=== PATIENT | female | born 1960 | race Caucasian/White ===

== ENCOUNTER 2018-11-26 08:49 | Emergency (ER) | payer OTHER ==
[2018-11-26] MEDS ORDERED: MORPHINE 4 MG/ML SYR ONE ×2 (09:04→10:44)
[2018-11-26] MEDS ORDERED: ONDANSETRON 4 MG/2 ML VIAL ONE ×2 (09:04→10:44)
[2018-11-26 09:29] LABS: Absolute Lymphocytes (CBC) 2.3 K/uL (0.7-4.9); Basophils % 0.9 % (0-1.3); Hematocrit 42.7 % (36.0-45.0); Lymphocytes % 37.5 % (15.3-44.8); MPV 10.6 fL (7.6-11.3); RBC Red Blood Cell Count 4.73 M/uL (3.86-4.86)
[2018-11-26 09:38] LABS: Bilirubin Direct 0.2 mg/dL (0-0.2); Bilirubin Total 0.8 mg/dL (0.2-1.0); Protein, Total 7.5 g/dL (6.4-8.2)
[2018-11-26] MEDS ORDERED: dexAMETHasone 10 MG/ML VIAL ONE (09:48)
[2018-11-26] MEDS ORDERED: DIAZEPAM 5 MG TABLET ONE ×2 (09:48→10:43)
[2018-11-26] MEDS ORDERED: NA CHLORIDE 0.9% 1,000 ML ONE (09:49)
[2018-11-26] MEDS ORDERED: KETOROLAC 30 MG/ML INJ ONE (09:49)
[2018-11-26 10:16] LABS: Urine Blood TRACE (NEG); Urine Glucose NEGATIVE (NEG); Urine Protein NEGATIVE (NEG)
--- NOTE | 2018-11-26 10:22 | RAD REPORT ---
EXAM DESCRIPTION: CT - Spine Lumbar Wo Con - 11/26/2018 10:10 am CLINICAL HISTORY: Radiculopathy. LOWER BACK PAIN COMPARISON: No comparisons TECHNIQUE: Axial noncontrast CT imaging of the lumbar spine was performed with coronal and sagittal re-formatted images. All CT scans are performed using dose optimization technique as appropriate and may include automated exposure control or mA/KV adjustment according to patient size. FINDINGS: No acute lumbar spine fracture seen. No aggressive marrow pattern or malalignment. Paraspinal tissues are normal in thickness. No paraspinal abscess or hematoma seen. Moderate multilevel degenerative changes throughout the lumbar spine with mild degenerative dextrosco liosis. Vacuum disc degeneration is present at L2-3, L3-4 and L5-S1. IMPRESSION: No acute lumbar spine abnormality. Moderate multilevel degenerative spondylosis of the lumbar spine with mild dextroscoliosis.
--- NOTE | 2018-11-26 10:45 | EDPHYS ---
Physician Documentation [facility] Name: Debora Florentino Age: 58 yrs Sex: Female : 1960 Arrival Date: 11/26/2018 Time: 08:49 Bed 8 Private MD: LIZBETH Physician Zeyad Saha HPI: 11/26 09:47 This 58 yrs old Female presents to ER via Wheelchair with complaints of Low miguel angel Back Pain. 09:47 The patient presents with pain that is acute, with no known mechanism of injury, and miguel angel decreased range of motion. The symptoms are located in the low back. The pain radiates to the left low back. The problem was sustained without known cause. Onset: The symptoms/episode began/occurred yesterday. Modifying factors: The patient symptoms are alleviated by remaining still, rest, the patient symptoms are aggravated by any movement, bending. Associated signs and symptoms: The patient has no apparent associated signs or symptoms. Historical: - Allergies: 09:04 No Known Allergies; ss - Home Meds: 09:14 lisinopril 40 mg Oral tab 1 tab once daily [Active]; metoprolol tartrate 100 mg Oral tw2 tab 1 tab once daily [Active]; omeprazole 40 mg Oral cpDR 1 cap once daily [Active]; atorvastatin 20 mg oral tab [Active]; - PMHx: 09:14 Hyperlipidemia; Hypertension; tw2 - Immunization history:: Adult Immunizations. - Social history:: Smoking status: . - Ebola Screening: : Patient denies travel to an Ebola-affected area in the 21 days before illness onset. - Family history:: not pertinent. ROS: 09:47 Constitutional: Negative for fever, chills, and weight loss, Eyes: Negative for injury, miguel angel pain, redness, and discharge, ENT: Negative for injury, pain, and discharge, Neck: Negative for injury, pain, and swelling, Cardiovascular: Negative for chest pain, palpitations, and edema, Respiratory: Negative for shortness of breath, cough, wheezing, and pleuritic chest pain, Abdomen/GI: Negative for abdominal pain, nausea, vomiting, diarrhea, and constipation, : Negative for injury, bleeding, discharge, and swelling, MS/Extremity: Negative for injury and deformity, Skin: Negative for injury, rash, and discoloration, Neuro: Negative for headache, weakness, numbness, tingling, and seizure, Psych: Negative for depression, anxiety, suicide ideation, homicidal ideation, and hallucinations, Allergy/Immunology: Negative for hives, rash, and allergies, Endocrine: Negative for neck swelling, polydipsia, polyuria, polyphagia, and marked weight changes, Hematologic/Lymphatic: Negative for swollen nodes, abnormal bleeding, and unusual bruising. 09:47 Back: Positive for decreased range of motion, pain at rest, pain with movement, radiated pain. Exam: 09:47 Constitutional: This is a well developed, well nourished patient who is awake, alert, miguel angel and in no acute distress. Head/Face: Normocephalic, atraumatic. Eyes: Pupils equal round and reactive to light, extra-ocular motions intact. Lids and lashes normal. Conjunctiva and sclera are non-icteric and not injected. Cornea within normal limits. Periorbital areas with no swelling, redness, or edema. ENT: Nares patent. No nasal discharge, no septal abnormalities noted. Tympanic membranes are normal and external auditory canals are clear. Oropharynx with no redness, swelling, or masses, exudates, or evidence of obstruction, uvula midline. Mucous membranes moist. Neck: Trachea midline, no thyromegaly or masses palpated, and no cervical lymphadenopathy. Supple, full range of motion without nuchal rigidity, or vertebral point tenderness. No Meningismus. Chest/axilla: Normal chest wall appearance and motion. Nontender with no deformity. No lesions are appreciated. Cardiovascular: Regular rate and rhythm with a normal S1 and S2. No gallops, murmurs, or rubs. Normal PMI, no JVD. No pulse deficits. Respiratory: Lungs have equal breath sounds bilaterally, clear to auscultation and percussion. No rales, rhonchi or wheezes noted. No increased work of breathing, no retractions or nasal flaring. Abdomen/GI: Soft, non-tender, with normal bowel sounds. No distension or tympany. No guarding or rebound. No evidence of tenderness throughout. Female : Normal external genitalia. Skin: Warm, dry with normal turgor. Normal color with no rashes, no lesions, and no evidence of cellulitis. MS/ Extremity: Pulses equal, no cyanosis. Neurovascular intact. Full, normal range of motion. Neuro: Awake and alert, GCS 15, oriented to person, place, time, and situation. Cranial nerves II-XII grossly intact. Motor strength 5/5 in all extremities. Sensory grossly intact. Cerebellar exam normal. Normal gait. Psych: Awake, alert, with orientation to person, place and time. Behavior, mood, and affect are within normal limits. 09:47 Back: pain, that is mild, that is moderate, ROM is painful, normal spinal alignment noted, CVA tenderness, is absent, vertebral tenderness, is not appreciated, muscle spasm, is appreciated in the left low back, left mid back, right mid back and right low back. Vital Signs: 09:04 Pulse 86; Resp 23; Temp 98.3(TE); Pulse Ox 100% on R/A; Weight 92.53 kg; Height 5 ft. 5 ss in. (165.10 cm); Pain 1010; 09:11 BP 184 / 80; tw2 09:38 BP 140 / 79; Pulse 71; Resp 17; Pulse Ox 100% on R/A; tw2 10:48 BP 148 / 76; Pulse 73; Resp 17; Pulse Ox 100% on R/A; tw2 11:29 BP 156 / 78; Pulse 69; Resp 17; Pulse Ox 100% on R/A; Pain 8/10; tw2 09:04 Body Mass Index 33.95 (92.53 kg, 165.10 cm) ss MDM: 08:56 Patient medically screened. [facility] 09:51 Data reviewed: vital signs, nurses notes, lab test result(s), radiologic studies, CT miguel angel scan. 11/26 09:05 Order name: Basic Metabolic Panel; Complete Time: 09:47 [facility] 11/26 09:05 Order name: CBC with Diff; Complete Time: 09:47 [facility] 11/26 09:05 Order name: Creatinine for Radiology; Complete Time: 09:47 aa 11/26 09:05 Order name: Hepatic Function; Complete Time: 09:47 aa 11/26 09:05 Order name: Lipase; Complete Time: 09:47 [facility] 11/26 09:51 Order name: Urine Culture [facility] 11/26 09:46 Order name: CT Lumbar Spine Wo Con; Complete Time: 10:41 [facility] 11/26 10:07 Order name: Urine Dipstick--Ancillary (enter results) 11/26 09:05 Order name: IV Saline Lock; Complete Time: 09:05 5 11/26 09:05 Order name: Labs collected and sent; Complete Time: 09:05 11/26 09:51 Order name: Urine Dipstick-Ancillary (obtain specimen); Complete Time: 10:03 miguel angel Administered Medications: 09:03 Drug: Zofran 4 mg Route: IVP; Site: right forearm; tw2 10:05 Follow up: Response: No adverse reaction tw2 09:06 Drug: morphine 4 mg {Note: RASS 0.} Route: IVP; Site: right forearm; tw2 09:51 Follow up: Response: No adverse reaction; Pain is unchanged, physician notified; RASS: tw2 Alert and Calm (0) 09:52 Drug: Valium 5 mg Route: PO; tw2 10:33 Follow up: Response: No adverse reaction; Pain is decreased tw2 10:02 Drug: TORadol 30 mg Route: IVP; Site: right forearm; tw2 10:33 Follow up: Response: No adverse reaction tw2 10:04 Drug: Decadron - Dexamethasone 10 mg Route: IVP; Site: right forearm; tw2 10:33 Follow up: Response: No adverse reaction tw2 10:05 Drug: NS 0.9% 1000 ml Route: IV; Rate: 1 bolus; Site: right forearm; tw2 11:30 Follow up: IV Status: Completed infusion; IV Intake: 1000ml tw2 10:43 Drug: Zofran 4 mg Route: IVP; Site: right forearm; tw2 11:30 Follow up: Response: No adverse reaction tw2 10:45 Drug: morphine 4 mg {Note: RASS 0.} Route: IVP; Site: right forearm; tw2 11:30 Follow up: Response: No adverse reaction; Pain is decreased; RASS: Alert and Calm (0) tw2 10:47 Drug: Valium 5 mg Route: PO; tw2 11:30 Follow up: Response: No adverse reaction tw2 Disposition: 11/26/18 10:44 Discharged to Home. Impression: Low back pain, Sciatica, left side, Scoliosis, Spondylolysis, lumbar region. - Condition is Stable. - Discharge Instructions: Back Pain, Adult, Musculoskeletal Pain, Sciatica, Back Injury Prevention, Enva-mn-Kwmj, Back Pain, Adult, Fdky-mr-Mely, Back Exercises, Ccgr-fe-Taqk. - Prescriptions for Ibuprofen 600 mg Oral Tablet - take 1 tablet by ORAL route every 6 hours As needed take with food; 30 tablet. Tylenol- Codeine #3 300-30 mg Oral Tablet - take 2 tablet by ORAL route every 6 hours As needed; 30 tablet. Valium 5 mg Oral Tablet - take 1 tablet by ORAL route every 8 hours As needed; 20 tablet. Medrol (Jose) 4 mg Oral Tablets, Dose Pack - take 1 tablet by ORAL route as directed - follow package instructions; 1 packet. - Medication Reconciliation Form, Thank You Letter, Antibiotic Education, Prescription Opioid Use, Work release form form. - Follow up: Private Physician; When: 2 - 3 days; Reason: Recheck today's complaints, Continuance of care, Re-evaluation by your physician. Follow up: Thong Bojorquez; When: 2 - 3 days; Reason: Recheck today's complaints, Re-evaluation by your physician. - Problem is new. - Symptoms have improved. Signatures: Dispatcher [employer] EDMS Zeyad Saha MD MD cha Calderon, Audri, RN RN aa5 Celia Pang RN RN ss Charito Benavides RN RN tw2 Corrections: (The following items were deleted from the chart) 11:31 10:44 11/26/2018 10:44 Discharged to Home. Impression: Low back pain; Sciatica, left tw2 side; Scoliosis; Spondylolysis, lumbar region. Condition is Stable. Discharge Instructions: Back Pain, Adult, Musculoskeletal Pain, Sciatica, Back Injury Prevention, Icgd-pd-[id number], Back Pain, Adult, Adrd-io-Cngu, Back Exercises, Xfbh-kl-Kiii. Prescriptions for Ibuprofen 600 mg Oral Tablet - take 1 tablet by ORAL route every 6 hours As needed take with food; 30 tablet, Tylenol-Codeine #3 300-30 mg Oral Tablet - take 2 tablet by ORAL route every 6 hours As needed; 30 tablet, Valium 5 mg Oral Tablet - take 1 tablet by ORAL route every 8 hours As needed; 20 tablet, Medrol (Jose) 4 mg Oral Tablets, Dose Pack - take 1 tablet by ORAL route as directed - follow package instructions; 1 packet. and Forms are Medication Reconciliation Form, Thank You Letter, Antibiotic Education, Prescription Opioid Use. Follow up: Private Physician; When: 2 - 3 days; Reason: Recheck today's complaints, Continuance of care, Re-evaluation by your physician. Follow up: Thong Bojorquez; When: 2 - 3 days; Reason: Recheck today's complaints, Re-evaluation by your physician. Problem is new. Symptoms have improved. miguel angel
--- NOTE | 2018-11-26 10:45 | ER ---
Nurse's Notes [facility] Name: Debora Florentino Age: 58 yrs Sex: Female : 1960 Arrival Date: 11/26/2018 Time: 08:49 Bed 8 Private MD: Diagnosis: Low back pain;Sciatica, left side;Scoliosis;Spondylolysis, lumbar region Presentation: 11/26 08:55 Presenting complaint: Patient states: severe L low back pain that began this morning. ss Is described as Sharp, burning and continuous. Initial Sepsis Screen: Does the patient meet any 2 criteria? No. Patient's initial sepsis screen is negative. Does the patient have a suspected source of infection? No. Patient's initial sepsis screen is negative. 08:55 Acuity: JOSETTE 2 ss 08:55 Method Of Arrival: Wheelchair ss 08:56 Transition of care: patient was not received from another setting of care. Onset of tw2 symptoms was November 26, 2018. Risk Assessment: Do you want to hurt yourself or someone else? Patient reports no desire to harm self or others. Care prior to arrival: None. Triage Assessment: 08:57 General: Appears uncomfortable, Behavior is crying. Pain: Complains of pain in back. tw2 Historical: - Allergies: 09:04 No Known Allergies; ss - Home Meds: 09:14 lisinopril 40 mg Oral tab 1 tab once daily [Active]; metoprolol tartrate 100 mg Oral tw2 tab 1 tab once daily [Active]; omeprazole 40 mg Oral cpDR 1 cap once daily [Active]; atorvastatin 20 mg oral tab [Active]; - PMHx: 09:14 Hyperlipidemia; Hypertension; tw2 - Immunization history:: Adult Immunizations. - Social history:: Smoking status: . - Ebola Screening: : Patient denies travel to an Ebola-affected area in the 21 days before illness onset. - Family history:: not pertinent. Screenin:56 Abuse screen: Denies threats or abuse. Nutritional screening: No deficits noted. tw2 Tuberculosis screening: No symptoms or risk factors identified. Fall Risk None identified. Assessment: 09:11 General: Appears uncomfortable, obese, Behavior is crying. Pain: Complains of pain in tw2 lumbar area, left low back and right low back. Neuro: Level of Consciousness is awake, alert, obeys commands, Oriented to person, place, time, situation. Cardiovascular: Heart tones S1 S2 Patient's skin is warm and dry. Respiratory: Airway is patent Respiratory effort is even, unlabored, Respiratory pattern is regular, symmetrical, Breath sounds are clear bilaterally. GI: No signs and/or symptoms were reported involving the gastrointestinal system. Abdomen is round non-distended, obese, Bowel sounds present X 4 quads. Abd is soft and non tender X 4 quads. : No signs and/or symptoms were reported regarding the genitourinary system. EENT: No signs and/or symptoms were reported regarding the EENT system. Derm: No signs and/or symptoms reported regarding the dermatologic system. Musculoskeletal: Circulation, motion, and sensation intact. Reports pain in lumbar area, left low back and right low back. 10:05 Reassessment: No changes from previously documented assessment. Patient and/or family tw2 updated on plan of care and expected duration. Pain level reassessed. Patient is alert, oriented x 3, equal unlabored respirations, skin warm/dry/pink. Patient states symptoms have not improved. 10:48 Reassessment: No changes from previously documented assessment. Patient and/or family tw2 updated on plan of care and expected duration. Pain level reassessed. Patient is alert, oriented x 3, equal unlabored respirations, skin warm/dry/pink. Patient states symptoms have not improved. 10:56 Reassessment: provider at bedside at this time. tw2 11:29 Reassessment: No changes from previously documented assessment. Patient and/or family tw2 updated on plan of care and expected duration. Pain level reassessed. Patient is alert, oriented x 3, equal unlabored respirations, skin warm/dry/pink. Vital Signs: 09:04 Pulse 86; Resp 23; Temp 98.3(TE); Pulse Ox 100% on R/A; Weight 92.53 kg; Height 5 ft. 5 ss in. (165.10 cm); Pain 10/10; 09:11 BP 184 / 80; tw2 09:38 BP 140 / 79; Pulse 71; Resp 17; Pulse Ox 100% on R/A; tw2 10:48 BP 148 / 76; Pulse 73; Resp 17; Pulse Ox 100% on R/A; tw2 11:29 BP 156 / 78; Pulse 69; Resp 17; Pulse Ox 100% on R/A; Pain 8/10; tw2 09:04 Body Mass Index 33.95 (92.53 kg, 165.10 cm) ED Course: 08:49 Patient arrived in ED. as 08:56 Charito Benavides, RN is Primary Nurse. tw2 08:56 Zeyad Saha MD is Attending Physician. miguel angel 08:56 Arm band placed on. tw2 08:57 Bed in low position. Call light in reach. Adult w/ patient. floor press operator on. Pulse tw2 ox on. NIBP on. 09:00 Inserted saline lock: 22 gauge in right forearm, using aseptic technique. Blood tw2 collected. 09:03 Triage completed. ss 10:10 CT Lumbar Spine Wo Con In Process Unspecified. EDMS 10:43 Thong Bojorquez MD is Referral Physician. [facility] 10:48 Awaiting: provider to consult with pt regarding results. tw2 10:57 No provider procedures requiring assistance completed. tw2 11:02 Awaiting: Re-evaluation of pain control after repeat dose PRIOR to discharge. tw2 11:31 IV discontinued, intact, bleeding controlled, No redness/swelling at site. Pressure tw2 dressing applied. Administered Medications: 09:03 Drug: Zofran 4 mg Route: IVP; Site: right forearm; tw2 10:05 Follow up: Response: No adverse reaction tw2 09:06 Drug: morphine 4 mg {Note: RASS 0.} Route: IVP; Site: right forearm; tw2 09:51 Follow up: Response: No adverse reaction; Pain is unchanged, physician notified; RASS: tw2 Alert and Calm (0) 09:52 Drug: Valium 5 mg Route: PO; tw2 10:33 Follow up: Response: No adverse reaction; Pain is decreased tw2 10:02 Drug: TORadol 30 mg Route: IVP; Site: right forearm; tw2 10:33 Follow up: Response: No adverse reaction tw2 10:04 Drug: Decadron - Dexamethasone 10 mg Route: IVP; Site: right forearm; tw2 10:33 Follow up: Response: No adverse reaction tw2 10:05 Drug: NS 0.9% 1000 ml Route: IV; Rate: 1 bolus; Site: right forearm; tw2 11:30 Follow up: IV Status: Completed infusion; IV Intake: 1000ml tw2 10:43 Drug: Zofran 4 mg Route: IVP; Site: right forearm; tw2 11:30 Follow up: Response: No adverse reaction tw2 10:45 Drug: morphine 4 mg {Note: RASS 0.} Route: IVP; Site: right forearm; tw2 11:30 Follow up: Response: No adverse reaction; Pain is decreased; RASS: Alert and Calm (0) tw2 10:47 Drug: Valium 5 mg Route: PO; tw2 11:30 Follow up: Response: No adverse reaction tw2 Intake: 11:30 IV: 1000ml; Total: 1000ml. tw2 Outcome: 10:44 Discharge ordered by MD. michelle 11:30 Discharged to home via wheelchair, with family. tw2 11:30 Condition: stable 11:30 Discharge instructions given to patient, family, Instructed on discharge instructions, follow up and referral plans. no drinking with medication, no driving heavy equipment, medication usage, Demonstrated understanding of instructions, follow-up care, medications, Prescriptions given X 4. 11:31 Patient left the ED. tw2 Signatures: Dispatcher [employer] EDZeyad Felix MD MD cha Martinez, Amelia as Smirch, Shelby, Charito Quiñones RN, RN RN tw2
[2018-11-26 11:45] VITALS: TEMP 98.3; O2SAT 100
[2018-11-26 11:51] VITALS: BP 156/78
== END 2018-11-26 11:31 | disposition home or self-care (01) ==
LOC: ER 08:49
DX: M54.32 Sciatica, left side (principal); M47.896 Other spondylosis, lumbar region; M41.86 Other forms of scoliosis, lumbar region
CPT/HCPCS: 96361; 87088; 85025; 87086; 80048; 36415; 80076; 81003; 83690; 72131; 96375; 96374; 99284; J1100; J7030; J2405 ×2

== ENCOUNTER 2020-07-16 06:01 | Emergency (ER) | payer OTHER ==
--- OUTSIDE RECORDS SUMMARY | 2020-07-16 06:04 | XMS REPORT | Continuity of Care Document ---
:1960 Author Organization [facility] t Address [address] [place] [address] Care Team Providers Name Role Phone Tracey PURI Primary Care Physician Therapy, Covid Infusion Attending Clinician Unavailable Doctor Unassigned, Name Attending Clinician Unavailable Lab, Fam Pob I Attending Clinician Unavailable Huan Lynch DO Attending Clinician Jerson GOETZ Attending Clinician Problems This patient has no known problems. Allergies, Adverse Reactions, Alerts This patient has no known allergies or adverse reactions. Social History Social Habit Start Date Stop Date Quantity Comments Source Cigarettes smoked 2018-12-28 2018-12-28 [place] [place] current (pack per 00:00:00 00:00:00 day) - Reported Cigarette 2018-12-28 2018-12-28 [place] [facility] pack-years 00:00:00 00:00:00 Tobacco use and 2018-12-28 2018-12-28 Never used [facility] Banuelos [facility]ist exposure 00:00:00 00:00:00 Alcohol intake 2018-12-28 2018-12-28 Current drinker [place] 00:00:00 00:00:00 of alcohol (finding) Sex [birth year] At [birth year] [facility] Banuelos [facility]ist 00:00:00 00:00:00 Smoking Status Start Date Stop Date Source Former smoker 2018-12-28 00:00:00 2018-12-28 00:00:00 [facility] Medications Ordered Filled Start Stop Current Ordering Indication Dosage Frequency Signature Comments Components Source Medication Medication Date Date Medication? Clinician (SIG) Name Name metoprolol 2018-02 Yes 100mg QD Take 100 [place] succinate 1-13 mg by [facility] XL 10:40: mouth st (TOPROL-XL) 33 daily. 100 mg 24 hr tablet omeprazole 2018-02 Yes 40mg QD Take 40 mg [place] (PriLOSEC) 1-13 by mouth Metho di 40 MG 10:40: daily. st capsule 33 atorvastati 2018-02 Yes 20mg QD Take 20 mg [place] (LIPITOR) 1-13 by mouth Meth vika 20 MG 10:40: nightly. st tablet 33 Default OP ins clonAZEPAM 2018-02 Yes 1mg Q.5D Take 1 mg [place] (KlonoPIN) 1-13 by mouth 2 Met hodi 1 MG 10:40: (two) st disintegrat 33 times a ing tablet day as needed for seizures. multivitami 2018-02 Yes 1{tbl} QD Take 1 [place] 1-13 tablet by [facility] (THERAGRAN) 10:40: mouth st tablet 33 daily. calcium 2018-02 Yes 1{tbl} Q.5D Take 1 [place] carbonate 1-13 tablet by Metho di oyster 10:40: mouth 2 st shell 33 (two) (OS-MAYA) times a 500 mg day. calcium (1,250 mg) tablet ibuprofen 2018-02 Yes 600mg Q6H Take 600 [place] [address] (ADVIL) 600 1-13 mg by [facility] MG tablet 10:40: mouth st 33 every 6 (six) hours as needed for mild pain. Takes 600-800 for back pain lisinopril 2018-02 Yes 40mg QD Take 40 mg [place] (PRINIVIL) 1-13 by mouth Metho di 40 mg 10:40: daily. st tablet 33 Procedures This patient has no known procedures. Plan of Care Planned Activity Planned Date Details Comments Source Future Scheduled 2021-12-27 Screening for [place] [facility] [facility] 00:00:00 malignant neoplasm of cervix (procedure) [code = 031773623] Future Scheduled 2020-09-13 INFLUENZA VACCINE [place] [facility] Test 00:00:00 [code = INFLUENZA VACCINE] Future Scheduled 2008 BREAST CANCER [place] [facility] Test 00:00:00 SCREENING [code = BREAST CANCER SCREENING] Future Scheduled 2008 COLONOSCOPY SCREENING [place] [facility] Test 00:00:00 [code = COLONOSCOPY SCREENING] Future Scheduled 2008 SHINGLES VACCINES [place] [facility] Test 00:00:00 (#1) [code = SHINGLES VACCINES (#1)] Future Scheduled 1976 Hepatitis C screening [place] [facility] Test 00:00:00 (procedure) [code = 904592488] Future Scheduled 1970 COVID-19 VACCINE (1) [place] [facility] [facility] Test 00:00:00 [code = COVID-19 VACCINE (1)] Encounters Start End Encounter Admission Attending Care Care Encounter Source Date/Time Date/Time Type Type Clinicians Facility Department ID 2020-05-19 2020-05-19 Nurse Therapy, [facility] [id number] 14:01:03 15:01:03 Visit [facility] García Garza [id number] Infusion [place] [id number] Surgical [id number] [place] [id number] 2020-05-19 2020-05-19 Orders Doctor PETRA [id number] 00:00:00 00:00:00 Only Unassigned, K[place] [id number] [place] [facility] [id number] 2020-05-18 2020-05-18 Laboratory Lab, [facility] [id number] 16:35:39 16:55:39 Only Fam Pob I Health [id number] [place] [id number] Professio [phone] nal [address] 2020-04-22 2020-04-22 Patient Syed [facility] [id number] 00:00:00 00:00:00 Outreach [facility] [id number] [facility] [id number] PAVILLION [id number] 2018-11-01 2018-11-01 [facility] [id number] 00:00:00 00:00:00 Yash Garza [id number] [place] [id number] [phone] [facility] 044 [facility] 2018-10-24 2018-10-24 [facility] [id number] 16:00:00 17:30:08 Visit Yash Garza [id number] [place] [id number] [phone] [address] Results This patient has no known results.
[2020-07-16] MEDS ORDERED: MEPERIDINE HCL 25 MG/ML SYR ONE (06:53)
[2020-07-16] MEDS ORDERED: NA CHLORIDE 0.9% 1,000 ML ONE (06:53)
[2020-07-16] MEDS ORDERED: ONDANSETRON 4 MG/2 ML VIAL ONE (06:53)
[2020-07-16 07:05] LABS: Absolute Lymphocytes (CBC) 1.8 K/uL (0.7-4.9); Basophils % 0.7 % (0-1.3); Hematocrit 40.2 % (36.0-45.0); Lymphocytes % 28.4 % (15.3-44.8); MPV 10.6 fL (7.6-11.3); RBC Red Blood Cell Count 4.16 M/uL (3.86-4.86)
[2020-07-16 07:20] LABS: Albumin 4.1 g/dL (3.4-5.0); Bilirubin Direct 0.2 mg/dL (0-0.2); Bilirubin Total 0.8 mg/dL (0.2-1.0); Potassium 4.1 mmol/L (3.5-5.1); Protein, Total 7.3 g/dL (6.4-8.2)
--- NOTE | 2020-07-16 08:12 | RAD REPORT ---
EXAM DESCRIPTION: CT - Abdomen Pelvis W Contrast - 07/16/2020 7:56 am CLINICAL HISTORY: Abdominal pain COMPARISON: none. TECHNIQUE: Computed axial tomography of the abdomen pelvis was obtained. 100 cc Isovue-300 was admin istered intravenously. Oral contrast was not requested which limits evaluation of bowel. All CT scans are performed using dose optimization technique as appropriate and may include automated exposure control or mA/KV adjustment according to patient size. FINDINGS: The liver, spleen, pancreas, adrenal and kidneys appear unremarkable. There is no evidence of diverticulitis. Normal appendix. Hysterectomy. Spondylosis/disc herniations involve the lumbar spine. IMPRESSION: No acute abnormality is displayed.
--- NOTE | 2020-07-16 08:23 | RAD REPORT ---
EXAM DESCRIPTION: US - Abdomen Exam Limited - 07/16/2020 7:03 am CLINICAL HISTORY: Abdominal pain. COMPARISON: None. FINDINGS: The gallbladder wall is not thickened. A gallstone is not seen. The biliary tree is normal caliber. IMPRESSION: Unremarkable gallbladder ultrasound.
--- NOTE | 2020-07-16 09:00 | ER ---
Nurse's Notes [facility] Name: Debora Florentino Age: 59 yrs Sex: Female : 1960 Arrival Date: 07/16/2020 Time: 06:03 Bed 19 Private MD: Michael Bridges B Diagnosis: Abdominal and pelvic pain Presentation: 07/16 06:28 Chief complaint: Patient states: I am having abdominal pain, nausea and diarrhea for 3 rr5 days now and its getting worse. Coronavirus screen: Client denies travel out of the [place] in the last 14 days. At this time, the client does not indicate any symptoms associated with coronavirus-19. Ebola Screen: Patient negative for fever greater than or equal to 101.5 degrees Fahrenheit, and additional compatible Ebola Virus Disease symptoms Patient denies exposure to infectious person. Patient denies travel to an Ebola-affected area in the 21 days before illness onset. Initial Sepsis Screen: Does the patient meet any 2 criteria? No. Patient's initial sepsis screen is negative. Does the patient have a suspected source of infection? No. Patient's initial sepsis screen is negative. Risk Assessment: Do you want to hurt yourself or someone else? Patient reports no desire to harm self or others. Onset of symptoms was July 14, 2020. 06:28 Method Of Arrival: Ambulatory rr5 06:28 Acuity: JOSETTE 3 rr5 Historical: - Allergies: 06:28 No Known Allergies; rr5 - Home Meds: 06:28 atorvastatin 20 mg Oral tab [Active]; lisinopril 40 mg Oral tab 1 tab once daily rr5 [Active]; metoprolol tartrate 100 mg Oral tab 1 tab once daily [Active]; omeprazole 40 mg Oral cpDR 1 cap once daily [Active]; - PMHx: 06:28 Hyperlipidemia; Hypertension; GERD; Atrial Fib; rr5 - PSHx: 06:28 ; Hysterectomy; rr5 - Immunization history:: Adult Immunizations up to date. - Social history:: Smoking status: Patient reports the use of cigarette tobacco products, smokes one-half pack cigarettes per day, Patient uses alcohol, on a daily basis. - Family history:: not pertinent. - Hospitalizations: : No recent hospitalization is reported. Screenin:50 Abuse screen: Denies threats or abuse. Denies injuries from another. Nutritional rr5 screening: No deficits noted. Tuberculosis screening: No symptoms or risk factors identified. Fall Risk IV access (20 points). Total Hunter Fall Scale indicates No Risk (0-24 pts). Assessment: 06:49 General: Appears in no apparent distress. uncomfortable, Behavior is calm, cooperative, rr5 appropriate for age. Pain: Complains of pain in right upper quadrant and left upper quadrant Pain currently is 6 out of 10 on a pain scale. Quality of pain is described as aching, Pain began gradually, Is continuous. Neuro: Level of Consciousness is awake, alert, obeys commands, Oriented to person, place, time. Cardiovascular: Capillary refill < 3 seconds Patient's skin is warm and dry. Respiratory: Airway is patent Respiratory effort is even, unlabored, Respiratory pattern is regular, symmetrical. GI: Abdomen is round non-distended, Abd is soft Reports upper abdominal pain, diarrhea, nausea. : No signs and/or symptoms were reported regarding the genitourinary system. EENT: No signs and/or symptoms were reported regarding the EENT system. Derm: Skin is intact, is healthy with good turgor, Skin temperature is warm. Musculoskeletal: Capillary refill < 3 seconds. 07:05 General: Appears in no apparent distress. comfortable, Behavior is calm, cooperative. rb3 Pain: Complains of pain in left upper quadrant and right upper quadrant Pain currently is 3 out of 10 on a pain scale. Neuro: Level of Consciousness is awake, alert, obeys commands, Oriented to person, place, time, situation. Cardiovascular: Patient's skin is warm and dry. Respiratory: Airway is patent Respiratory effort is even, unlabored, Respiratory pattern is regular, symmetrical. 08:00 Reassessment: Patient appears in no apparent distress at this time. Pt. is resting with rb3 eyes closed, respirations even, unlabored. 09:00 Reassessment: Patient appears in no apparent distress at this time. Patient and/or rb3 family updated on plan of care and expected duration. Pain level reassessed. Patient is alert, oriented x 3, equal unlabored respirations, skin warm/dry/pink. Vital Signs: 06:28 BP 177 / 99; Pulse 65; Resp 19; Temp 98.5; Pulse Ox 100% ; Weight 93.44 kg; Height 5 rr5 ft. 4 in. (162.56 cm); Pain 6/10; 07:05 BP 138 / 78; Pulse 63; Resp 17; Pulse Ox 98% ; Pain 6/10; rb3 08:12 BP 137 / 79; Pulse 67; Resp 17; Pulse Ox 98% ; rb3 09:11 BP 153 / 85; Pulse 72; Resp 17; Pulse Ox 98% ; rb3 06:28 Body Mass Index 35.36 (93.44 kg, 162.56 cm) rr5 ED Course: 06:03 Patient arrived in ED. es 06:03 Michael Bridges MD is Private Physician. es 06:16 Yuniel Mercer MD is Attending Physician. rn 06:27 Sergio Bah RN is Primary Nurse. rr5 06:31 Triage completed. rr5 06:31 Arm band placed on right wrist. rr5 06:40 Inserted saline lock: 20 gauge in right forearm, using aseptic technique. Blood rr5 collected. 06:50 Patient has correct armband on for positive identification. Bed in low position. Call rr5 light in reach. Pulse ox on. NIBP on. 07:02 US Abdomen Limited In Process Unspecified. EDMS 07:27 Attending Physician role handed off by Yuniel Mercer MD kdr 07:27 Joseph Kramer MD is Attending Physician. kdr 07:56 CT Abd/Pelvis - IV Contrast Only In Process Unspecified. EDMS 08:59 Michael Bridges MD is Referral Physician. kdr 09:12 No provider procedures requiring assistance completed. IV discontinued, intact, rb3 bleeding controlled, No redness/swelling at site. Pressure dressing applied. Administered Medications: 06:40 Drug: Zofran (Ondansetron) 4 mg Route: IVP; Site: right forearm; rr5 07:00 Follow up: Response: No adverse reaction rb3 06:40 Drug: NS 0.9% 1000 ml Route: IV; Rate: 1000 ml; Site: right forearm; rr5 06:42 Drug: Demerol (meperidine) 25 mg {Note: rass 0.} Route: IVP; Site: right forearm; rr5 07:00 Follow up: Response: No adverse reaction; Pain is decreased rb3 Outcome: 08:59 Discharge ordered by . kdr 09:12 Discharged to home ambulatory, with significant other. rb3 09:12 Condition: stable 09:12 Discharge instructions given to patient, Instructed on discharge instructions, follow up and referral plans. medication usage, Demonstrated understanding of instructions, follow-up care, medications, Prescriptions given X 4. 09:13 Patient left the ED. rb3 Signatures: Dispatcher [employer] Joseph Garcia MD MD kdr Salyer, Edna es Nieto, Roman, MD MD rn Roque, Raymond, RN RN rr5 Iesha Matta RN RN rb3 Corrections: (The following items were deleted from the chart) 08:06 07:05 Pain: Complains of pain in left upper quadrant and right upper quadrant Pain rb3 currently is 6 out of 10 on a pain scale. rb3 08:12 08:05 BP 137 / 56; Pulse 87bpm; Resp 16bpm; Pulse Ox 98%; Temp 97.6F; rb3 rb3
--- NOTE | 2020-07-16 09:00 | EDPHYS ---
Physician Documentation [facility] Name: Debora Florentino Age: 59 yrs Sex: Female : 1960 Arrival Date: 07/16/2020 Time: 06:03 Bed 19 Private MD: Michael Bridges B ED Physician Joseph Kramer HPI: 07/16 06:28 This 59 yrs old Female presents to ER via Unassigned with complaints of rn Abdominal Pain. 06:28 The patient presents with abdominal pain in the upper abdomen. Onset: The rn symptoms/episode began/occurred 3 day(s) ago. The symptoms do not radiate. Associated signs and symptoms: Pertinent positives: nausea, Pertinent negatives: blood in stools, chest pain, constipation, fever. The symptoms are described as achy, crampy. Modifying factors: The symptoms are alleviated by nothing, the symptoms are aggravated by touching the area. Severity of pain: At its worst the pain was moderate in the emergency department the pain is unchanged. The patient has not experienced similar symptoms in the past. The patient has not recently seen a physician. Historical: - Allergies: 06: No Known Allergies; rr5 - Home Meds: :28 atorvastatin 20 mg Oral tab [Active]; lisinopril 40 mg Oral tab 1 tab once daily rr5 [Active]; metoprolol tartrate 100 mg Oral tab 1 tab once daily [Active]; omeprazole 40 mg Oral cpDR 1 cap once daily [Active]; - PMHx: 06:28 Hyperlipidemia; Hypertension; GERD; Atrial Fib; rr5 - PSHx: :28 ; Hysterectomy; rr5 - Immunization history:: Adult Immunizations up to date. - Social history:: Smoking status: Patient reports the use of cigarette tobacco products, smokes one-half pack cigarettes per day, Patient uses alcohol, on a daily basis. - Family history:: not pertinent. - Hospitalizations: : No recent hospitalization is reported. ROS: 06:28 Constitutional: Negative for fever, chills, and weight loss, Eyes: Negative for injury, rn pain, redness, and discharge, Neck: Negative for injury, pain, and swelling, Cardiovascular: Negative for chest pain, palpitations, and edema, Respiratory: Negative for shortness of breath, cough, wheezing, and pleuritic chest pain, Abdomen/GI: + upper abd pain, + nausea Back: Negative for injury and pain, : Negative for injury, bleeding, discharge, and swelling, MS/Extremity: Negative for injury and deformity, Skin: Negative for injury, rash, and discoloration, Neuro: Negative for headache, weakness, numbness, tingling, and seizure. Exam: 06:28 Constitutional: This is a well developed, well nourished patient who is awake, alert, rn and in no acute distress. Head/Face: Normocephalic, atraumatic. Eyes: Periorbital areas with no swelling, redness, or edema. ENT: MMM Cardiovascular: Regular rate and rhythm. No pulse deficits. Respiratory: No increased work of breathing, no retractions or nasal flaring. Abdomen/GI: Soft, + tender RUQ/epigastric/LUQ, no masses, no peritoneal signs. Skin: Warm, dry MS/ Extremity: Pulses equal, no cyanosis. Neurovascular intact. Full, normal range of motion. Equal circumference. Neuro: Awake and alert, GCS 15 Vital Signs: 06:28 BP 177 / 99; Pulse 65; Resp 19; Temp 98.5; Pulse Ox 100% ; Weight 93.44 kg; Height 5 rr5 ft. 4 in. (162.56 cm); Pain 6/10; 07:05 BP 138 / 78; Pulse 63; Resp 17; Pulse Ox 98% ; Pain 6/10; rb3 08:12 BP 137 / 79; Pulse 67; Resp 17; Pulse Ox 98% ; rb3 09:11 BP 153 / 85; Pulse 72; Resp 17; Pulse Ox 98% ; rb3 06:28 Body Mass Index 35.36 (93.44 kg, 162.56 cm) rr5 MDM: 06:16 Patient medically screened. rn 07:11 Transition of care: After a detail discussion of the patient's case, care is rn transferred to Joseph Kramer MD. 10:02 Data reviewed: vital signs, nurses notes, lab test result(s), radiologic studies. kdr Counseling: I had a detailed discussion with the patient and/or guardian regarding: the historical points, exam findings, and any diagnostic results supporting the discharge/admit diagnosis, lab results, radiology results, the need for outpatient follow up. 07/16 06:28 Order name: Basic Metabolic Panel; Complete Time: 07:41 rn 07/16 06:28 Order name: CBC with Diff; Complete Time: 07:41 rn 07/16 06:28 Order name: Hepatic Function; Complete Time: 07:41 rn 07/16 06:28 Order name: Lipase; Complete Time: 07:41 rn 07/16 06:28 Order name: CT Abd/Pelvis - IV Contrast Only; Complete Time: 08:47 rn 07/16 06:28 Order name: US Abdomen Limited; Complete Time: 08:47 rn 07/16 06:28 Order name: IV Saline Lock; Complete Time: 06:47 rn 07/16 06:28 Order name: Labs collected and sent; Complete Time: 06:47 rn Administered Medications: 06:40 Drug: Zofran (Ondansetron) 4 mg Route: IVP; Site: right forearm; rr5 07:00 Follow up: Response: No adverse reaction rb3 06:40 Drug: NS 0.9% 1000 ml Route: IV; Rate: 1000 ml; Site: right forearm; rr5 06:42 Drug: Demerol (meperidine) 25 mg {Note: rass 0.} Route: IVP; Site: right forearm; rr5 07:00 Follow up: Response: No adverse reaction; Pain is decreased rb3 Disposition: 07/16/20 08:59 Discharged to Home. Impression: Abdominal and pelvic pain. - Condition is Stable. - Discharge Instructions: Abdominal Pain, Adult, [id number]. - Prescriptions for Bentyl 20 mg Oral Tablet - take 1 tablet by ORAL route every 6 hours As needed; 20 tablet. Pepcid 20 mg Oral Tablet - take 1 tablet by ORAL route every 12 hours for 5 days; 10 tablet. Zofran 4 mg Oral Tablet - take 1 tablet by ORAL route every 4-6 hours As needed; 12 tablet. Tramadol 50 mg Oral Tablet - take 1 tablet by ORAL route every 8 hours as needed; 12 tablet. - Medication Reconciliation Form, Thank You Letter, Prescription Opioid Use form. - Follow up: Michael Bridges MD; When: 2 - 3 days; Reason: If symptoms return, Further diagnostic work-up, Recheck today's complaints, Continuance of care, Re-evaluation by your physician. - Problem is new. - Symptoms have improved. Signatures: Dispatcher [employer] EDMS Joseph Kramer MD MD kdr Mercer, Yuniel, MD MD rn Sergio Bah, RN RN rr5 Iesha Matta, RN RN rb3 Corrections: (The following items were deleted from the chart) 09:13 08:59 07/16/2020 08:59 Discharged to Home. Impression: Abdominal and pelvic pain. rb3 Condition is Stable. Forms are Medication Reconciliation Form, Thank You Letter, Antibiotic Education, Prescription Opioid Use. Follow up: Michael Bridges; When: 2 - 3 days; Reason: If symptoms return, Further diagnostic work-up, Recheck today's complaints, Continuance of care, Re-evaluation by your physician. Problem is new. Symptoms have improved. kdr
[2020-07-16 09:26] VITALS: TEMP 98.5
[2020-07-16 09:29] VITALS: O2SAT 98
[2020-07-16 09:31] VITALS: BP 153/85
== END 2020-07-16 09:13 | disposition home or self-care (01) ==
LOC: ER 06:01
DX: R10.2 Pelvic and perineal pain (principal); I10 Essential (primary) hypertension; E78.5 Hyperlipidemia, unspecified; K21.9 Gastro-esophageal reflux disease without esophagitis; I48.91 Unspecified atrial fibrillation; F17.210 Nicotine dependence, cigarettes, uncomplicated
CPT/HCPCS: 85025; 80048; 36415; 80076; 83690; 74177; 76705; 96375; 96374; 99284; Q9967; J2175; J7030; J2405